=== PATIENT | female | born 1950 | race Two or more races ===

== ENCOUNTER 2018-12-20 13:43 | Emergency (ER) | payer OTHER ==
[~2018-12-20] VITALS: Ht 149.9 cm; Wt 73.0 kg
[2018-12-20 13:55] VITALS: BP 135/60
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
[2018-12-20] MEDS ORDERED: ibuprofen tablet 400 MG TABLET PO ONE (15:50)
== END 2018-12-20 17:20 | disposition home or self-care (01) ==
LOC: ER 13:44
DX: S29.012A Strain of muscle and tendon of back wall of thorax, initial encounter (principal); M25.551 Pain in right hip; M25.511 Pain in right shoulder; G89.29 Other chronic pain; Z88.8 Allergy status to other drugs, medicaments and biological substances; V49.49XA Driver injured in collision with other motor vehicles in traffic accident, initial encounter; Y93.89 Activity, other specified; Y92.488 Other paved roadways as the place of occurrence of the external cause; Y99.8 Other external cause status
CPT/HCPCS: 72070; 73552; 99283

== ENCOUNTER 2019-06-09 18:51 | Emergency (ER) | payer MEDICARE, BC ==
[~2019-06-09] VITALS: Ht 147.3 cm; Wt 75.5 kg
[2019-06-09 19:13] VITALS: BP 125/63
== END 2019-06-09 20:34 | disposition home or self-care (01) ==
LOC: ER 18:52
DX: S09.90XA Unspecified injury of head, initial encounter (principal); G89.29 Other chronic pain; E03.9 Hypothyroidism, unspecified; Z88.8 Allergy status to other drugs, medicaments and biological substances; W22.8XXA Striking against or struck by other objects, initial encounter; Y93.89 Activity, other specified; Y92.89 Other specified places as the place of occurrence of the external cause; Y99.8 Other external cause status
CPT/HCPCS: 99281